=== PATIENT | female | born 2000 | race Caucasian/White ===

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

== ENCOUNTER 2022-02-16 16:37 | Emergency (ER) | payer BC, MEDICAID, SELFPAY ==
[2022-02-16 16:43] VITALS: BP 123/75; PULSE 89; RESP 16; TEMP 36.9; O2SAT 99; BMI 24.0
[2022-02-16 16:56] VITALS: BP 124/80; PULSE 77; RESP 16; O2SAT 97
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
== END 2022-02-16 18:14 | disposition home or self-care (01) ==
PROVIDERS: Emergency Provider Nurse Practitioner Family; PCP Electrodiagnostic Medicine
DX: S29.012A Strain of muscle and tendon of back wall of thorax, initial encounter (principal); S16.1XXA Strain of muscle, fascia and tendon at neck level, initial encounter; V89.2XXA Person injured in unspecified motor-vehicle accident, traffic, initial encounter
CPT/HCPCS: 72040; 72072; 99282

== ENCOUNTER 2022-09-21 21:18 | Emergency (ER) | payer BC, MEDICAID, SELFPAY ==
[2022-09-21 21:20] VITALS: BP 125/85; PULSE 98; RESP 18; TEMP 36.9; O2SAT 98; BMI 20.7
--- NOTE | 2022-09-21 22:17 | W.ED.ABDPA2 ---
Documented by User: FESTUS Weeks 09/22/22 00:29 HPI - Abdominal Pain General: Chief Complaint: Abdominal Pain Stated Complaint: abd pain left side, black stool, N/V Time Seen by Provider: 09/21/22 22:17 History of Present Illness: 21-year-old female comes in today with some complaints of nausea vomiting and diarrhea for 3 days. Patient reports that she had some significant abdominal pain after passing gas she felt better. Patient also noticed some dark stools after using Pepto-Bismol. Patient reports no fever. Patient appears mildly unwell but not toxic. Patient has thrown up once and had some diarrhea on arrival to the ER. Associated Symptoms: Reports diarrhea, nausea and vomiting; Denies fever(s) Related Data: Date of Last Menstrual Period: 08/27/22 Review of Systems Const: Denies: fever(s) Card: Denies: chest pain Resp: Denies: dyspnea GI: Reports: nausea, vomiting and diarrhea : Denies: flank pain Musc: Denies: extremity pain Skin/Breast: Denies: rash PFSH ED PFSH: Medical History (Updated 09/22/22 @ 00:27 by FESTUS Weeks) No pertinent past medical history Surgical History (Updated 09/08/21 @ 15:26 by Berta Springer MD) History of tonsillectomy and adenoidectomy at age 7 or 8 Family History (Updated 09/08/21 @ 13:15 by Kadi Sahu LPN) Mother Diabetes Hypertension Grandfather Diabetes Maternal Hypertension Maternal and Paternal Grandmother Diabetes Maternal Father Hypertension Denies family history of CAD (coronary artery disease) Hyperlipidemia Chronic kidney disease (CKD) Bleeding disorder Cancer Thyroid disease Stroke Female Reproductive History: Date of last menstrual period: 08/27/22 Physical Exam Const: COMMON NORMALS: alert HENMT: COMMON NORMALS: normocephalic HEAD & SCALP: normocephalic Neck/C-Spine: COMMON NORMALS: full ROM Chest: COMMONS NORMALS: normal inspection of the chest Resp: COMMON NORMALS: normal respiratory effort Cardio: COMMON NORMALS: regular rate and regular rhythm RATE: regular rate RHYTHM: regular rhythm GI: COMMON NORMALS: Soft to palpation AUSCULTATION: Yes Hyperactive bowel sounds present PALPATION: Yes Soft to palpation and Yes Tenderness to palpation present (GI) (generalized) : COMMON NORMALS: Yes no CVA tenderness BLADDER/KIDNEY EXAM: Yes no CVA tenderness Back/Pelvis: COMMON NORMALS: no CVA tenderness Neuro: SENSORIUM/ORIENTATION: Yes alert Skin: COMMON NORMALS: turgor normal GENERAL SKIN EXAM: turgor normal Course Vital Signs: Vital signs: Vital Signs Temperature 98.5 F 09/21/22 21:20 Pulse Rate 71 09/22/22 00:34 Respiratory Rate 16 09/22/22 00:34 Blood Pressure 125/85 09/21/22 21:20 Pulse Oximetry 98 09/22/22 00:34 Oxygen Delivery Me thod 09/21/22 21:20 MDM - Abdominal Pain Medical Decision Making Patient comes in today with complaints of nausea vomiting and diarrhea with some dark stool started about 3 days ago. Patient noticed dark stools after taking Pepto-Bismol. On exam abdomen soft with some generalized tenderness. Vital signs are normal. Differential diagnosis includes but not limited to appendicitis, intestinal abscess, gastroenteritis, dehydration. Laboratory values noted some mild dehydration with potassium 3.3 and BUN of 21. Patient CBC was unremarkable. Patient's hCG was negative. Patient was given 1 L of IV fluids, 2 mg of morphine sulfate, and 4 mg of Zofran. Patient was able to tolerate oral fluids. Patient reported improvement of symptoms. CT of the abdomen pelvis was unremarkable. Recommend continuing pushing fluids, prescription for loperamide and ondansetron was written. Patient reported understanding and agreed to plan with need for follow-up or return to the ER for worsening symptoms. Lab Data : 09/21/22 22:25 09/21/22 22:25 Labs/Radiology: Radiology Impressions Abdomen/Pelvis CT 09/21/22 22:28 IMPRESSION: No acute findings. Laboratory Results WBC 5.7 10^3/uL (4.5-13.0) 09/21/22 22:25 RBC 4.26 10^6/uL (4.1-5.3) 09/21/22 22:25 Hgb 12.2 g/dL (11.5-15.3) 09/21/22 22:25 Hct 36.7 % (37.0-47.0) L 09/21/22 22:25 MCV 86.2 fl (81-99) 09/21/22 22:25 MCH 28.6 pg (28.0-34.0) 09/21/22: MCHC 33.2 g/dL (30.0-36.0) 09/21/22: RDW 12.6 % (12.1-15.1) 09/21/22: Plt Count 304 10^3/cmm (130-400) 09/21/22: MPV 10.1 fL (7.4-10.4) 09/21/22: Neut % (Auto) 62.0 % 09/21/22: Lymph % (Auto) 26.6 % 09/21/22: [place] % (Auto) 9.8 % 09/21/22: Eos % (Auto) 0.9 % 09/21/22 Baso % (Auto) 0.5 % 09/21/22 Neut # (Auto) 3.54 10^3/uL (1.8-8.0) 09/21/22: Lymph # (Auto) 1.5 10^3/uL (1.5-6.5) 09/21/22: [place] # (Auto) 0.6 10^3/uL (0.2-0.9) 09/21/22: Eos # (Auto) 0.1 10^3/uL (0.0-0.8) 09/21/22: Baso # (Auto) 0.0 10^3/uL (0.0-0.1) 09/21/22: Nucleated RBC % (auto) 0 % 09/21/22: Nucleated RBCs # 0.0 /100WBC 09/21/22: Sodium 141 mmol/L (136-145) 09/21/22: Potassium 3.3 mmol/L (3.5-5.1) L 09/21/22: Chloride 105 mmol/L (98-107) 09/21/22: Carbon Dioxide 21 mmol/L (22-29) L 09/21/22: Anion Gap 18.3 (5-19) 09/21/22: BUN 6 mg/dL (6-20) 09/21/22: Creatinine 0.6 mg/dL (0.5-0.9) 09/21/22 22:25 GFR Calculation 128.8 mL/min (90-130) 09/21/22 22:25 Glucose 87 mg/dL (65-115) 09/21/22 22:25 Calculated Osmolality 289 mOsm/kg (285-295) 09/21/22 22:25 Calcium 9.2 mg/dL (8.5-10.5) 09/21/22:25 Total Bilirubin 0.3 mg/dL (0.15-1.2) 09/21/22 22:25 AST 14 U/L (0-32) 09/21/22:25 ALT 11 U/L (0-33) 09/21/22:25 Alkaline Phosphatase 55 U/L (35-105) 09/21/22:25 Total Protein 7.3 g/dL (6.6-8.7) 09/21/22:25 Albumin 4.4 g/dL (3.5-5.2) 09/21/22: Globulin 2.9 g/dL (1.3-4.6) 09/21/22 22:25 HCG, Qual Negative (Negative) 09/21/22 22:25 Urine Color Yellow (Yellow) 09/22/22 00:14 Urine Appearance Clear (CLEAR) 09/22/22 00:14 Urine pH 5 (5-7) 09/22/22 00:14 Ur Specific [place] 1.010 (1.005-1.030) 09/22/22 00:14 Urine Protein Neg (Negative) 09/22/22 00:14 Urine Glucose (UA) Norm (Normal) 09/22/22 00:14 Urine Ketones Negative (Negative) 09/22/22 00:14 Urine Blood Neg (Negative) 09/22/22 00:14 Urine Nitrate Negative (Negative) 09/22/22 00:14 Urine Bilirubin Neg (Negative) 09/22/22 00:14 Urine Urobilinogen Norm mg/dL (Negative) 09/22/22 00:14 Ur Leukocyte Esterase Negative (Negative) 09/22/22 00:14 Discharge Plan Discharge Patient Disposition: Home Clinical Impression: Gastroenteritis Condition: Stable Prescriptions: New ondansetron 4 mg tablet,disintegrating 4 mg PO Q8H PRN (Reason: nausea and vomiting) Qty: 7 0RF loperamide 2 mg capsule 2 mg PO Q4H PRN (Reason: loose stool) Qty: 20 0RF Rx Instructions: do not exceed 16 mg per 24 hrs No Action Necon 0.5/35 (28) 0.5-35 mg-mcg tablet 1 tab PO DAILY levonorgestrel-ethinyl estrad [Aviane] 0.1-20 mg-mcg tablet 1 tab PO DAILY Qty: 28 12RF Discharge Orders: Discharge ED (Routine); Ordered 09/22/22 Ordered By: Adolph Stearns Referrals: Jovi Bates DO [Primary Care Provider] - Patient Instructions: Gastroenteritis (ED) Activity Restrictions/Additional Instructions: Home and rest. Drink plenty of fluids. Use ondansetron 4 mg every 8 hours as needed for nausea vomiting. Use loperamide 2 mg 1 capsule every 4 hours as needed for loose stools. Drink electrolyte solutions like Pedialyte or similar solutions to maintain hydration especially with diarrhea stools. Follow-up with primary care for further instructions. Return to ED for new concerns. Stand Alone Forms: Work/School Release Coding Level of Care Code ED Senior Field Service Engineer for Chg Fwd Exam Comprehensive Documented by User: Noe Valle DO 09/22/22 02:46 HPI - Abdominal Pain General: Chief Complaint: Abdominal Pain Stated Complaint: abd pain left side, black stool, N/V Time Seen by Provider: 09/21/22 22:17 PFSH ED PFSH: Medical History (Updated 09/22/22 @ 00:27 by FESTUS Weeks) No pertinent past medical history Surgical History (Updated 09/08/21 @ 15:26 by Berta Springer MD) History of tonsillectomy and adenoidectomy at age 7 or 8 Family History (Updated 09/08/21 @ 13:15 by Kadi Sahu LPN) Mother Diabetes Hypertension Grandfather Diabetes Maternal Hypertension Maternal and Paternal Grandmother Diabetes Maternal Father Hypertension Denies family history of CAD (coronary artery disease) Hyperlipidemia Chronic kidney disease (CKD) Bleeding disorder Cancer Thyroid disease Stroke Course Vital Signs: Vital signs: Vital Signs Temperature 98.5 F 09/21/22 21:20 Pulse Rate 71 09/22/22 00:34 Respiratory Rate 16 09/22/22 00:34 Blood Pressure 125/85 09/21/22 21:20 Pulse Oximetry 98 09/22/22 00:34 Oxygen Delivery Me thod 09/21/22 21:20 MDM - Abdominal Pain Medical Decision Making Patient comes in today with complaints of nausea vomiting and diarrhea with some dark stool started about 3 days ago. Patient noticed dark stools after taking Pepto-Bismol. On exam abdomen soft with some generalized tenderness. Vital signs are normal. Differential diagnosis includes but not limited to appendicitis, intestinal abscess, gastroenteritis, dehydration. Laboratory values noted some mild dehydration with potassium 3.3 and BUN of 21. Patient CBC was unremarkable. Patient's hCG was negative. Patient was given 1 L of IV fluids, 2 mg of morphine sulfate, and 4 mg of Zofran. Patient was able to tolerate oral fluids. Patient reported improvement of symptoms. CT of the abdomen pelvis was unremarkable. Recommend continuing pushing fluids, prescription for loperamide and ondansetron was written. Patient reported understanding and agreed to plan with need for follow-up or return to the ER for worsening symptoms. This patient was originally seen by FESTUS [place].? I agree with his history, evaluation, and treatment. Lab Data : 09/21/22 22:25 09/21/22 22:25 Labs/Radiology: Radiology Impressions Abdomen/Pelvis CT 09/21/22 22:28 IMPRESSION: No acute findings. Laboratory Results WBC 5.7 10^3/uL (4.5-13.0) 09/21/22 22:25 RBC 4.26 10^6/uL (4.1-5.3) 09/21/22 22:25 Hgb 12.2 g/dL (11.5-15.3) 09/21/22 22:25 Hct 36.7 % (37.0-47.0) L 09/21/22 22:25 MCV 86.2 fl (81-99) 09/21/22 22:25 MCH 28.6 pg (28.0-34.0) 09/21/22: MCHC 33.2 g/dL (30.0-36.0) 09/21/22: RDW 12.6 % (12.1-15.1) 09/21/22: Plt Count 304 10^3/cmm (130-400) 09/21/22: MPV 10.1 fL (7.4-10.4) 09/21/22: Neut % (Auto) 62.0 % 09/21/22: Lymph % (Auto) 26.6 % 09/21/22: [place] % (Auto) 9.8 % 09/21/22: Eos % (Auto) 0.9 % 09/21/22: Baso % (Auto) 0.5 % 09/21/22: Neut # (Auto) 3.54 10^3/uL (1.8-8.0) 09/21/22: Lymph # (Auto) 1.5 10^3/uL (1.5-6.5) 09/21/22: [place] # (Auto) 0.6 10^3/uL (0.2-0.9) 09/21/22: Eos # (Auto) 0.1 10^3/uL (0.0-0.8) 09/21/22: Baso # (Auto) 0.0 10^3/uL (0.0-0.1) 09/21/22: Nucleated RBC % (auto) 0 % 09/21/22: Nucleated RBCs # 0.0 /100WBC 09/21/22 22: Sodium 141 mmol/L (136-145) 09/21/22: Potassium 3.3 mmol/L (3.5-5.1) L 09/21/22: Chloride 105 mmol/L (98-107) 09/21/22: Carbon Dioxide 21 mmol/L (22-29) L 09/21/22: Anion Gap 18.3 (5-19) 09/21/22 22: BUN 6 mg/dL (6-20) 09/21/22: Creatinine 0.6 mg/dL (0.5-0.9) 09/21/22:25 GFR Calculation 128.8 mL/min (90-130) 09/21/22: Glucose 87 mg/dL (65-115) 09/21/22: Calculated Osmolality 289 mOsm/kg (285-295) 09/21/22: Calcium 9.2 mg/dL (8.5-10.5) 09/21/22: Total Bilirubin 0.3 mg/dL (0.15-1.2) 09/21/22: AST 14 U/L (0-32) 09/21/22: ALT 11 U/L (0-33) 09/21/22: Alkaline Phosphatase 55 U/L (35-105) 09/21/22: Total Protein 7.3 g/dL (6.6-8.7) 09/21/22: Albumin 4.4 g/dL (3.5-5.2) 09/21/22: Globulin 2.9 g/dL (1.3-4.6) 09/21/22 22:25 HCG, Qual Negative (Negative) 09/21/22 22:25 Urine Color Yellow (Yellow) 09/22/22 00:14 Urine Appearance Clear (CLEAR) 09/22/22 00:14 Urine pH 5 (5-7) 09/22/22 00:14 Ur Specific [place] 1.010 (1.005-1.030) 09/22/22 00:14 Urine Protein Neg (Negative) 09/22/22 00:14 Urine Glucose (UA) Norm (Normal) 09/22/22 00:14 Urine Ketones Negative (Negative) 09/22/22 00:14 Urine Blood Neg (Negative) 09/22/22 00:14 Urine Nitrate Negative (Negative) 09/22/22 00:14 Urine Bilirubin Neg (Negative) 09/22/22 00:14 Urine Urobilinogen Norm mg/dL (Negative) 09/22/22 00:14 Ur Leukocyte Esterase Negative (Negative) 09/22/22 00:14 Discharge Plan Discharge Patient Disposition: Home Clinical Impression: Gastroenteritis Condition: Stable Prescriptions: New ondansetron 4 mg tablet,disintegrating 4 mg PO Q8H PRN (Reason: nausea and vomiting) Qty: 7 0RF loperamide 2 mg capsule 2 mg PO Q4H PRN (Reason: loose stool) Qty: 20 0RF Rx Instructions: do not exceed 16 mg per 24 hrs No Action Necon 0.5/35 (28) 0.5-35 mg-mcg tablet 1 tab PO DAILY levonorgestrel-ethinyl estrad [Aviane] 0.1-20 mg-mcg tablet 1 tab PO DAILY Qty: 28 12RF Discharge Orders: Discharge ED (Routine); Ordered 09/22/22 Ordered By: Adolph Stearns Referrals: Jovi Bates DO [Primary Care Provider] - Patient Instructions: Gastroenteritis (ED) Activity Restrictions/Additional Instructions: Home and rest. Drink plenty of fluids. Use ondansetron 4 mg every 8 hours as needed for nausea vomiting. Use loperamide 2 mg 1 capsule every 4 hours as needed for loose stools. Drink electrolyte solutions like Pedialyte or similar solutions to maintain hydration especially with diarrhea stools. Follow-up with primary care for further instructions. Return to ED for new concerns. Stand Alone Forms: Work/School Release Coding Level of Care Code ED Senior Field Service Engineer for [place] Fwd Exam Comprehensive
--- NOTE | 2022-09-21 22:28 | CTR_ITS ---
PROCEDURE INFORMATION: Exam: CT Abdomen And Pelvis With Contrast Exam date and time: 09/21/2022 11:21 PM Age: 21 years old Clinical indication: Nausea and vomiting; Additional info: Abd pain, black stools, n/v/d TECHNIQUE: Imaging protocol: Computed tomography of the abdomen and pelvis with contrast. Radiation optimization: All CT scans at this facility use at least one of these dose optimization techniques: automated exposure control; mA and/or kV adjustment per patient size (includes targeted exams where dose is matched to clinical indication); or iterative reconstruction. Contrast material: OMNI 350; Contrast volume: 100 ml; Contrast route: INTRAVENOUS (IV); COMPARISON: CR XR abdomen 1V* [id number] 05/24/2020 11:11 AM RADIATION DOSE METRICS: Total DLP (mGy-cm): 338.45 FINDINGS: Liver: Focal fat deposition adjacent to the falciform ligament. Gallbladder and bile ducts: Normal. No calcified stones. No ductal dilation. Pancreas: Normal. No ductal dilation. Spleen: Normal. No splenomegaly. Adrenal glands: Normal. No mass. Kidneys and ureters: Normal. No hydronephrosis. Stomach and bowel: Unremarkable. No obstruction. No mucosal thickening. Appendix: No evidence of appendicitis. Intraperitoneal space: Unremarkable. No free air. No significant fluid collection. Vasculature: Unremarkable. No abdominal aortic aneurysm. Lymph nodes: Unremarkable. No enlarged lymph nodes. Urinary bladder: Unremarkable as visualized. Reproductive: Unremarkable as visualized. Bones/joints: No acute fracture. Soft tissues: Unremarkable. CT/CT abdomen pelvis w con* [id number] IMPRESSION: No acute findings.
[2022-09-21] MEDS: ondansetron 2 mg/ML SDV 2 mL 4 MG IVP (22:34)
[2022-09-21 22:35] VITALS: RESP 18
[2022-09-21] MEDS: morphine 4 mg/mL SDV 1 mL 2 MG IVP (22:35)
[2022-09-21] MEDS: lactated ringers 1,000 ML 999 ML IV (22:40)
[2022-09-21 22:45] LABS: Basophils % 0.5 %; Eosinophils # 0.1 10^3/uL (0.0-0.8); Eosinophils % 0.9 %; Hematocrit 36.7 % (37.0-47.0); Hemoglobin 12.2 g/dL (11.5-15.3); Lymphocytes # 1.5 10^3/uL (1.5-6.5); Lymphocytes % 26.6 %; Mean Corpuscular HGB Conc 33.2 g/dL (30.0-36.0); Mean Corpuscular Hemoglobin 28.6 pg (28.0-34.0); Mean Corpuscular Volume 86.2 fl (81-99); Mean Platelet Volume 10.1 fL (7.4-10.4); Monocytes # 0.6 10^3/uL (0.2-0.9); Monocytes % 9.8 %; Neutrophils # 3.54 10^3/uL (1.8-8.0); Nucleated Red Blood Cells % 0 %; Platelet Count 304 10^3/cmm (130-400); Red Blood Count 4.26 10^6/uL (4.1-5.3); Red Cell Distribution Width 12.6 % (12.1-15.1); White Blood Count 5.7 10^3/uL (4.5-13.0)
[2022-09-21 23:04] LABS: HCG, Serum Qual Negative (Negative)
[2022-09-21 23:07] LABS: Alanine Aminotransferase 11 U/L (0-33); Albumin Level 4.4 g/dL (3.5-5.2); Alkaline Phosphatase 55 U/L (35-105); Anion Gap 18.3 (5-19); Aspartate Amino Transferase 14 U/L (0-32); Blood Urea Nitrogen 6 mg/dL (6-20); Calcium 9.2 mg/dL (8.5-10.5); Carbon Dioxide 21 mmol/L (22-29); Chloride 105 mmol/L (98-107); Globulin 2.9 g/dL (1.3-4.6); Glomerular Filtration Rate 128.8 mL/min (90-130); Glucose 87 mg/dL (65-115); Osmolality Calculated 289 mOsm/kg (285-295); Potassium 3.3 mmol/L (3.5-5.1); Sodium 141 mmol/L (136-145); Total Bilirubin 0.3 mg/dL (0.15-1.2); Total Protein 7.3 g/dL (6.6-8.7)
[2022-09-21] MEDS: iohexol 350 mg/mL 500 mL Btl (per mL) IV (23:27)
[2022-09-22 00:26] LABS: Add Urine Microscopic? NO; Charge for UA Resulting for Rev
[2022-09-22 00:34] VITALS: PULSE 71; RESP 16; O2SAT 98
[2022-09-22 00:34] LABS: Bilirubin Urine Neg (Negative); Blood Urine Neg (Negative); Glucose Urine UA Norm (Normal); Ketones Urine Negative (Negative); Leukocyte Esterase Urine Negative (Negative); Nitrate Urine Negative (Negative); Protein Urine Neg (Negative); Urine Appearance Clear (CLEAR); Urine Color Yellow (Yellow); Urobilinogen Urine Norm (Negative); pH Urine 5 (5-7)
== END 2022-09-22 00:35 | disposition home or self-care (01) ==
PROVIDERS: Emergency Provider Nurse Practitioner Family; PCP Electrodiagnostic Medicine
DX: K52.9 Noninfective gastroenteritis and colitis, unspecified (principal)
CPT/HCPCS: 74177; 80053; 81003; 84703; 85025; 96361; 96374; 96375; 99285; J2270; J2405; J7120; Q9967